=== PATIENT | female | born 1950 | race Caucasian/White ===

== ENCOUNTER 2017-11-08 16:16 | Inpatient (IN) | payer MEDICARE, OTHER ==
[~2017-11-08] VITALS: Ht 149.9 cm; Wt 73.9 kg
[2017-11-08 18:44] LABS: Basophils # (auto) 0 uL; Basophils % (auto) 0.4 % (0.0-2.0); Eosinophils # (auto) 0 uL; Eosinophils % (auto) 0.6 % (0.0-7.0); Hematocrit 33.4 % (36.0-46.0); Hemoglobin 10.3 g/dL (12.2-16.2); Lymphocytes # (auto) 0.7 uL; Lymphocytes % (auto) 11.8 % (10.0-50.0); Mean Corpuscular Hemoglobin 31.6 pg (28.0-32.0); Mean Corpuscular Hgb Conc. 30.8 g/dL (32.0-36.0); Mean Corpuscular Volume 102.7 fL (80.0-100.0); Monocytes # (auto) 0.8 uL; Monocytes % (auto) 14.1 % (0.0-12.0); Neutrophils # (auto) 4.3 uL; Neutrophils % (auto) 73.1 % (37.0-80.0); Nucleated Red Blood Cells % 0.3 %; Platelet Count (auto) 153 10^3/uL (140-450); Red Blood Cells 3.25 10^6/uL (4.0-5.20); Red Cell Distribution Width 18.2 % (11.8-14.3); White Blood Cell 5.9 10^3/uL (4.4-10.8)
[2017-11-08 18:48] LABS: INR 1.2 (0.9-1.15); Partial Thromboplastin Time 34.4 sec (22.64-33.71); Prothrombin Time 13.1 sec (9.37-12.3)
[2017-11-08 19:08] LABS: BUN/Creatinine Ratio 5.2; Bilirubin, Total 0.7 mg/dL (0.2-1.0); Calcium 9.1 mg/dL (8.5-10.1); Magnesium 2.3 mg/dL (1.6-2.6); Potassium 3.6 mmol/L (3.5-5.1)
[2017-11-08 19:32] LABS: Albumin 2.1 g/dL (3.4-5.0)
[2017-11-08] MEDS ORDERED: MORPHINE SULFATE 4 MG/ML SYR/VIAL IV PRN (22:15)
[2017-11-08] MEDS ORDERED: NITROGLYCERIN 0.4 MG SL TAB SL PRN (22:15)
[2017-11-09] VITALS (7 sets, daily range): BP systolic 125–168; BP diastolic 62–79
[2017-11-09] MEDS ORDERED: DEXTROSE (50%) 50ML SYRG IV PRN (02:30)
[2017-11-09] MEDS ORDERED: HYDROcodone-ACET 5/325MG TAB PO PRN (02:30)
[2017-11-09] MEDS ORDERED: ONDANSETRON HCL 4 MG/2 ML VIAL IV PRN (02:30)
[2017-11-09] MEDS ORDERED: ACETAMINOPHEN 500 MG TAB PO PRN (02:30)
[2017-11-09 05:44] LABS: Basophils # (auto) 0 uL; Basophils % (auto) 0.4 % (0.0-2.0); Eosinophils # (auto) 0 uL; Eosinophils % (auto) 0.8 % (0.0-7.0); Hematocrit 31.8 % (36.0-46.0); Hemoglobin 10.3 g/dL (12.2-16.2); Lymphocytes # (auto) 0.7 uL; Lymphocytes % (auto) 10.6 % (10.0-50.0); Mean Corpuscular Hemoglobin 32.3 pg (28.0-32.0); Mean Corpuscular Hgb Conc. 32.3 g/dL (32.0-36.0); Mean Corpuscular Volume 99.9 fL (80.0-100.0); Monocytes # (auto) 0.8 uL; Monocytes % (auto) 12.3 % (0.0-12.0); Neutrophils # (auto) 4.8 uL; Neutrophils % (auto) 75.9 % (37.0-80.0); Nucleated Red Blood Cells % 0.1 %; Platelet Count (auto) 166 10^3/uL (140-450); Red Blood Cells 3.19 10^6/uL (4.0-5.20); White Blood Cell 6.3 10^3/uL (4.4-10.8)
[2017-11-09] MEDS ORDERED: POTA20TA53 PO (06:01)
[2017-11-09] MEDS ORDERED: ONDA4TAB5 PO (06:01)
[2017-11-09] MEDS ORDERED: CLOP75TA28 PO (06:01)
[2017-11-09] MEDS ORDERED: OMEG100078 PO (06:01)
[2017-11-09] MEDS ORDERED: NITR0.4S29 SL (06:01)
[2017-11-09] MEDS ORDERED: FAM20T PO (06:01)
[2017-11-09] MEDS ORDERED: DOCU-94 PO (06:01)
[2017-11-09] MEDS ORDERED: ACET5SOL5 PO (06:01)
[2017-11-09] MEDS ORDERED: B-COTAB10 OR (06:01)
[2017-11-09] MEDS ORDERED: ALLO300T79 PO (06:01)
[2017-11-09] MEDS ORDERED: METO25TA3 PO (06:01)
[2017-11-09] MEDS ORDERED: APIX2.5T OR (06:01)
[2017-11-09] MEDS ORDERED: SEVE800T8 PO (06:01)
[2017-11-09] MEDS ORDERED: MULT-195 OR (06:01)
[2017-11-09] MEDS ORDERED: PANT40TA2 PO (06:01)
[2017-11-09] MEDS ORDERED: MED20T PO (06:01)
[2017-11-09] MEDS ORDERED: IPRAAER6 IN (06:01)
[2017-11-09] MEDS ORDERED: PRAV20TA3 PO (06:01)
[2017-11-09] MEDS ORDERED: PRE5T PO (06:01)
[2017-11-09] MEDS: ACCU-CHEK COMFORT CURVE STRIP VI SCH ×4 (06:12→22:17)
[2017-11-09] MEDS: InsuLIN REG 1unit/0.01ml Soln (100units/ml) SC SCH ×4 (06:12→22:00)
[2017-11-09 06:33] LABS: BUN/Creatinine Ratio 6.1; Calcium 9.2 mg/dL (8.5-10.1); Potassium 3.9 mmol/L (3.5-5.1)
[2017-11-09] MEDS: CLOPIDOGREL BISULFATE 75 MG TAB PO SCH (10:00)
[2017-11-09] MEDS: SEVELAMER 800 MG TAB PO SCH ×3 (12:00→18:10)
[2017-11-09] MEDS: DOCUSATE SOD 100 MG CAP PO SCH ×2 (13:09→22:17)
[2017-11-09] MEDS: APIXABAN 2.5 MG TAB PO SCH ×2 (13:09→22:17)
[2017-11-09] MEDS: PANTOPRAZOLE 40 MG TAB PO SCH (13:09)
[2017-11-09] MEDS: predniSONE 5 MG TAB PO SCH (13:09)
[2017-11-09] MEDS: METOPROLOL SUCCINATE XL 50 MG TAB PO SCH (13:10)
[2017-11-10] MEDS: ACCU-CHEK COMFORT CURVE STRIP VI SCH ×4 (05:36→21:58)
[2017-11-10] MEDS: InsuLIN REG 1unit/0.01ml Soln (100units/ml) SC SCH ×4 (05:37→21:59)
[2017-11-10 05:39] VITALS: BP 132/77
[2017-11-10] MEDS: SEVELAMER 800 MG TAB PO SCH ×3 (12:00→18:00)
[2017-11-10 13:00] VITALS: BP 166/79
[2017-11-10] MEDS ORDERED: SODIUM CHL 0.9% 1000 ML BAG XX ONE (13:00)
[2017-11-10] MEDS ORDERED: EPOETIN ALFA 10,000 UNIT/1 ML VIAL IV ONE (13:00)
[2017-11-10] MEDS: PANTOPRAZOLE 40 MG TAB PO SCH (15:50)
[2017-11-10] MEDS: DOCUSATE SOD 100 MG CAP PO SCH ×2 (15:50→21:58)
[2017-11-10] MEDS: CLOPIDOGREL BISULFATE 75 MG TAB PO SCH (15:50)
[2017-11-10] MEDS: APIXABAN 2.5 MG TAB PO SCH ×2 (15:50→21:58)
[2017-11-10] MEDS: predniSONE 5 MG TAB PO SCH (15:50)
[2017-11-10] MEDS: METOPROLOL SUCCINATE XL 50 MG TAB PO SCH ×2 (15:51→22:00)
[2017-11-10 17:00] VITALS: BP 165/108
[2017-11-10] MEDS ORDERED: METOPROLOL SUCCINATE XL 50 MG TAB PO ONE (18:30)
[2017-11-10 22:05] VITALS: BP 137/68
[2017-11-11] MEDS ORDERED: LOSARTAN POTASSIUM 50 MG TAB PO ONE (00:30)
[2017-11-11 02:00] VITALS: BP 157/87
[2017-11-11 05:00] VITALS: BP 145/70
[2017-11-11] MEDS: ACCU-CHEK COMFORT CURVE STRIP VI SCH ×4 (06:13→22:20)
[2017-11-11] MEDS: InsuLIN REG 1unit/0.01ml Soln (100units/ml) SC SCH ×4 (06:13→22:00)
[2017-11-11 06:27] LABS: Basophils # (auto) 0 uL; Basophils % (auto) 0.5 % (0.0-2.0); Eosinophils # (auto) 0.1 uL; Eosinophils % (auto) 2.4 % (0.0-7.0); Hematocrit 32.6 % (36.0-46.0); Hemoglobin 10.5 g/dL (12.2-16.2); Lymphocytes # (auto) 0.9 uL; Lymphocytes % (auto) 19.2 % (10.0-50.0); Mean Corpuscular Hemoglobin 31.7 pg (28.0-32.0); Monocytes # (auto) 0.5 uL; Neutrophils # (auto) 3.3 uL; Neutrophils % (auto) 67.9 % (37.0-80.0); Nucleated Red Blood Cells % 0.1 %; Platelet Count (auto) 169 10^3/uL (140-450); Red Cell Distribution Width 17.4 % (11.8-14.3); White Blood Cell 4.9 10^3/uL (4.4-10.8)
[2017-11-11 07:03] LABS: BUN/Creatinine Ratio 6.4; Calcium 8.8 mg/dL (8.5-10.1); Phosphorus 3.9 mg/dL (2.5-4.90); Potassium 3.9 mmol/L (3.5-5.1)
[2017-11-11 08:47] VITALS: BP 131/67
[2017-11-11] MEDS: APIXABAN 2.5 MG TAB PO SCH ×2 (09:02→22:12)
[2017-11-11] MEDS: CLOPIDOGREL BISULFATE 75 MG TAB PO SCH (09:02)
[2017-11-11] MEDS: PANTOPRAZOLE 40 MG TAB PO SCH (09:02)
[2017-11-11] MEDS: DOCUSATE SOD 100 MG CAP PO SCH ×2 (09:02→22:13)
[2017-11-11] MEDS: predniSONE 5 MG TAB PO SCH (09:02)
[2017-11-11] MEDS: SEVELAMER 800 MG TAB PO SCH ×3 (09:02→17:33)
[2017-11-11] MEDS: METOPROLOL SUCCINATE XL 50 MG TAB PO SCH ×2 (09:03→22:13)
[2017-11-11] MEDS ORDERED: PERITONEAL DIALYSIS 1.5% SOLN 2,000 ML IP SCH (10:00)
[2017-11-11] MEDS ORDERED: PERITONEAL DIALYSIS 2.5% SOLN 2,000 ML IP ONE ×5 (11:30)
[2017-11-11] MEDS ORDERED: PERITONEAL DIALYSIS 4.25% SOLN 2,000 ML IP ONE (11:30)
[2017-11-11 13:18] VITALS: BP 127/55
[2017-11-11] MEDS: PERITONEAL DIALYSIS 2.5% SOLN 2,000 ML IP SCH ×3 (15:34→22:18)
[2017-11-11 17:16] VITALS: BP 125/96
[2017-11-12] MEDS: PERITONEAL DIALYSIS 2.5% SOLN 2,000 ML IP SCH ×4 (02:44→14:30)
[2017-11-12 05:02] VITALS: BP 150/66
[2017-11-12] MEDS: InsuLIN REG 1unit/0.01ml Soln (100units/ml) SC SCH ×2 (06:03→11:30)
[2017-11-12] MEDS: ACCU-CHEK COMFORT CURVE STRIP VI SCH ×2 (06:03→11:06)
[2017-11-12 06:10] LABS: Basophils # (auto) 0 uL; Basophils % (auto) 0.7 % (0.0-2.0); Eosinophils # (auto) 0.1 uL; Eosinophils % (auto) 1.9 % (0.0-7.0); Hemoglobin 11.8 g/dL (12.2-16.2); Lymphocytes # (auto) 1.1 uL; Lymphocytes % (auto) 20.1 % (10.0-50.0); Mean Corpuscular Hemoglobin 31.6 pg (28.0-32.0); Mean Corpuscular Volume 98.9 fL (80.0-100.0); Monocytes # (auto) 0.4 uL; Monocytes % (auto) 7.8 % (0.0-12.0); Neutrophils # (auto) 3.8 uL; Neutrophils % (auto) 69.5 % (37.0-80.0); Nucleated Red Blood Cells % 0.1 %; Platelet Count (auto) 189 10^3/uL (140-450); Red Blood Cells 3.74 10^6/uL (4.0-5.20); Red Cell Distribution Width 17.4 % (11.8-14.3); White Blood Cell 5.4 10^3/uL (4.4-10.8)
[2017-11-12 06:23] LABS: BUN/Creatinine Ratio 6.8; Calcium 9.3 mg/dL (8.5-10.1); Potassium 3.8 mmol/L (3.5-5.1)
[2017-11-12] MEDS: SEVELAMER 800 MG TAB PO SCH ×3 (08:32→11:06)
[2017-11-12 09:00] VITALS: BP 141/40
[2017-11-12] MEDS: DOCUSATE SOD 100 MG CAP PO SCH (10:16)
[2017-11-12] MEDS: predniSONE 5 MG TAB PO SCH (10:16)
[2017-11-12] MEDS: CLOPIDOGREL BISULFATE 75 MG TAB PO SCH (10:16)
[2017-11-12] MEDS: METOPROLOL SUCCINATE XL 50 MG TAB PO SCH (10:17)
[2017-11-12] MEDS: APIXABAN 2.5 MG TAB PO SCH (10:17)
[2017-11-12] MEDS: PANTOPRAZOLE 40 MG TAB PO SCH (10:17)
[2017-11-12 13:00] VITALS: BP 136/55
[2017-11-12 15:34] VITALS: BP 136/55
[2017-11-13 11:19] LABS: Folate (Folic Acid) > 24.00 ng/mL (5.38-24)
== END 2017-11-12 16:17 | disposition home or self-care (01) | DRG 91 ==
LOC: ER 16:33 → TELE 16:34 → WEST WING 23:57 → TELE-WESTW 11-09 01:06
PROVIDERS: ADMIT Nurse Practitioner Family; ATTEND Internal Medicine Pulmonary Disease
PROC: 5A1D70Z Performance of Urinary Filtration, Intermittent, Less than 6 Hours Per Day (ICD-10-PCS; principal; 2017-11-10)
DX: G92 Toxic encephalopathy (principal); N18.6 End stage renal disease; E43 Unspecified severe protein-calorie malnutrition; I13.2 Hypertensive heart and chronic kidney disease with heart failure and with stage 5 chronic kidney disease, or end stage renal disease; T86.12 Kidney transplant failure; Z94.0 Kidney transplant status; E11.22 Type 2 diabetes mellitus with diabetic chronic kidney disease; I50.9 Heart failure, unspecified; Z99.2 Dependence on renal dialysis; D63.8 Anemia in other chronic diseases classified elsewhere; E20.9 Hypoparathyroidism, unspecified; G89.4 Chronic pain syndrome; I08.0 Rheumatic disorders of both mitral and aortic valves; E11.42 Type 2 diabetes mellitus with diabetic polyneuropathy; I25.10 Atherosclerotic heart disease of native coronary artery without angina pectoris; I67.2 Cerebral atherosclerosis; M54.5 Low back pain; I70.0 Atherosclerosis of aorta; Y83.0 Surgical operation with transplant of whole organ as the cause of abnormal reaction of the patient, or of later complication, without mention of misadventure at the time of the procedure; Z79.01 Long term (current) use of anticoagulants; I25.2 Old myocardial infarction; Z86.718 Personal history of other venous thrombosis and embolism; Z86.73 Personal history of transient ischemic attack (TIA), and cerebral infarction without residual deficits; Z95.5 Presence of coronary angioplasty implant and graft; Z98.49 Cataract extraction status, unspecified eye; Z88.8 Allergy status to other drugs, medicaments and biological substances; Z79.899 Other long term (current) drug therapy; Z68.32 Body mass index [BMI] 32.0-32.9, adult
CPT/HCPCS: 36415; 70450; 71010; 80048; 80053; 82607; 82746; 82962; 83036; 83735; 84100; 84443; 84484; 85025; 85610; 85730; 87081; 89051; 90935; 93005; 93306; 94761; 95819; 97163; J0885; J1642; J1815